=== PATIENT | female | born 1975 | race Caucasian/White ===

== ENCOUNTER 2017-08-03 18:45 | Emergency (ER) | payer BC, OTHER ==
[2017-08-03] MEDS ORDERED: Acetaminophen/HYDROcodone 325-10 MG Tab PO ONE (18:46)
--- NOTE | 2017-08-03 19:45 | EDM.PDOC ---
ED HPI GENERAL MEDICAL PROBLEM - General Chief Complaint: Lower Extremity Injury/Pain Stated Complaint: WANTS TO HAVE FOOT CHECKED [id number] Time Seen by Provider: 08/03/17 19:41 Source of Information: Reports: Patient History Limitations: Reports: No Limitations - History of Present Illness INITIAL COMMENTS - FREE TEXT/NARRATIVE: left steeping press tender bottom only on weight bearing. denies injury. 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: Endocrine/Metabolic History: Reports: Hypothyroidism, Other (See Below) Other Endocrine/Metabolic History: idiopathic hypersomnia - Past Surgical History Female Surgical History: Reports: Tubal Ligation, Other (See Below) Other Female Surgeries/Procedures: hysterectomy Social & Family History - Tobacco Use Smoking Status *Q: Former Smoker Used Tobacco, but Quit: Yes Month Tobacco Last Used: 04/2017 - Caffeine Use Caffeine Use: Reports: Soda, Tea - Recreational Drug Use Recreational Drug Use: No Review of Systems - Review of Systems Review Of Systems: ROS reveals no pertinent complaints other than HPI. ED EXAM, GENERAL - Physical Exam Exam: See Below Exam Limited By: No Limitations General Appearance: Alert, WD/WN, Anxious, Mild Distress, Other (upset) Ears: Hearing Grossly Normal Throat/Mouth: Normal Voice, No Airway Compromise Head: Atraumatic Neck: Non-Tender, Full Range of Motion Respiratory/Chest: No Respiratory Distress Cardiovascular: Regular Rate, Rhythm GI/Abdominal: Soft, Non-Tender Extremities: Other (plantar tender on weight bearing, no gross D/D, NVwnl, gait limited to pain.) Neurological: Alert, Oriented, Normal Cognition, No Motor/Sensory Deficits Psychiatric: Anxious Skin Exam: Warm, Dry, Normal Color Lymphatic: No Adenopathy Course - Vital Signs Last Recorded V/S: Last Vital Signs Temp 37.7 C 08/03/17 19:00 Pulse 88 08/03/17 19:00 Resp 16 08/03/17 19:00 BP 143/91 H 08/03/17 19:00 Pulse Ox 99 08/03/17 19:00 - Re-Assessments/Exams Free Text/Narrative Re-Assessment/Exam: 08/03/17 20:43 results discussed with pt. Departure - Departure Time of Disposition: 20:43 Disposition: Home, Self-Care 01 Condition: Good Clinical Impression: Contusion of foot, left Qualifiers: Encounter type: initial encounter Qualified Code(s): S90.32XA - Contusion of left foot, initial encounter - Discharge Information Instructions: Foot Contusion, [id number] Forms: ED Department Discharge Additional Instructions: 1) elevate leg as much as possible 2) see Rajesh for possible MRI SCAN or ORTHOPEDIC REFERRAL 3) recheck if there is any change or concern rx igor; wenceslao x1
[2017-08-03] MEDS ORDERED: Acetaminophen/HYDROcodone 325-10 MG Tab ONE (20:50)
== END 2017-08-03 21:44 | disposition home or self-care (01) ==
LOC: DL.ED 18:45
DX: S90.32XA Contusion of left foot, initial encounter (principal); Z79.899 Other long term (current) drug therapy; Z87.891 Personal history of nicotine dependence; X58.XXXA Exposure to other specified factors, initial encounter
CPT/HCPCS: 73620-LT; 99283; A9270-GY

== ENCOUNTER 2018-12-10 08:02 | Day surgery (SDC) | payer BC, OTHER ==
[~2018-12-10 08:02] MED LIST: Sodium Chloride 0.9% 10 ML Syringe FLUSH PRN; ceFAZolin 1 GM in Premix Bag 1 BAG IV ONE
[2018-12-10] MEDS ORDERED: Bupivacaine 0.5% 30 ML SDV INJECT ONE ×5 (08:03→11:37)
[2018-12-10] MEDS ORDERED: Dexamethasone 4 MG/ML SDV IV ONE (08:03)
[2018-12-10] MEDS ORDERED: Propofol 200 MG/20 ML SDV IV ONE (08:03)
[2018-12-10] MEDS ORDERED: Ketorolac 30 MG/ML SDV IVPUSH ONE (08:03)
[2018-12-10] MEDS ORDERED: Ondansetron 4 MG/2 ML SDV IV ONE (08:03)
[2018-12-10] MEDS ORDERED: fentaNYL 100 MCG/2 ML SDV IV ONE (08:03)
[2018-12-10] MEDS ORDERED: Lidocaine 1% 30 ML SDV INJECT ONE ×5 (08:03→11:37)
[2018-12-10] MEDS ORDERED: Midazolam 1 MG/ML 2 ML SDV IV ONE (08:03)
[2018-12-10] MEDS ORDERED: Lactated Ringers 1,000 ML IV SCH (09:00)
[2018-12-10] MEDS ORDERED: Bupivacaine 0.5% 30 ML SDV ONE (10:08)
[2018-12-10] MEDS ORDERED: Lidocaine 1% 30 ML SDV ONE (10:08)
[2018-12-10] MEDS ORDERED: Acetaminophen/oxyCODONE 325-5 MG Tab PO PRN (11:47)
--- NOTE | 2018-12-10 11:50 | PCM.OPNOTE ---
- General Post-Op/Procedure Note Date of Surgery/Procedure: 12/10/18 Operative Procedure(s): Right foot 1st MTPJ cheilectomy Pre Op Diagnosis: Right foot 1st MTPJ arthritis/hallux limitus Post-Op Diagnosis: keya Anesthesia Technique: Local, MAC Primary Surgeon: Maria Luisa Byrnes Anesthesia Provider: Rosalio Coronado EBL in mLs: 5 Complications: none Condition: Good Free Text/Narrative:: Pt tolerated procedure well and was transported to recovery with vascular status intact to right foot. Well padded compression dressing applied.
--- NOTE | 2018-12-13 20:29 | OR ---
DATE: 12/10/2018 PREOPERATIVE DIAGNOSIS: Right 1st metatarsophalangeal joint bone spur/hallux limitus. POSTOPERATIVE DIAGNOSIS: Right 1st metatarsophalangeal joint bone spur/hallux limitus. PROCEDURE PERFORMED: Right foot 1st metatarsophalangeal joint cheilectomy. ANESTHESIA: Local MAC with preoperative local block of 10 mL 1:1 mixture of 1% lidocaine plain and 0.5% Marcaine plain. TOURNIQUET TIME: 49 minutes, pneumatic ankle tourniquet. ESTIMATED BLOOD LOSS: Minimal. SPECIMEN: None. COMPLICATIONS: None. INDICATIONS: Elvia is a 43-year-old female who presents with right great toe pain. She states in 2014, she dropped a dresser on her great toe when she was wearing foot flaps. She did have pain and swelling to that toe. Now, the toe is still painful, worse when she tries to wear high-heeled shoes, and it feels like it gets jammed. There is no bump on the top of that joint that is painful. She has tried multiple different shoes and activity modifications with no relief. X-rays of the right foot reveal no signs of fracture, spurring on the dorsal 1st MTPJ, small osteophyte, lateral joint. The patient voiced good understanding of proposed procedure and possible complications and elects to have surgery at this time. DESCRIPTION OF PROCEDURE: The patient was taken to the operating room, lying in supine position. After adequate anesthesia induction as described above, the right foot was prepped and draped in usual sterile fashion. A pneumatic ankle tourniquet was inflated to 225 mmHg. Attention was then directed to the dorsal aspect of the 1st metatarsophalangeal joint on the right foot. Sharp and blunt dissection was performed down to the level of the joint capsule with care to retract all neurovascular structures. A T-capsulotomy was made and the joint was exposed. The capsule was sharply dissected free from its attachments to the distal 1st metatarsal and base of the proximal phalanx. A moderate osteophyte of the dorsal aspect of the 1st metatarsal was noted at this time as well as a large loose body that looked like it had broken off the lateral aspect of the head of the 1st metatarsal, there was a cartilaginous defect underneath the loose body in the same shape. This was removed. There were also noted to be 3 smaller loose bodies at the dorsal lateral aspect of the joint, which were all removed. The remainder of the joint surface appeared healthy in appearance without any other defects. A sagittal saw was used to resect the bone from the medial, dorsal, and lateral aspects of the 1st metatarsal head and dorsal base of the proximal phalanx so that all spurring was removed. The 1st MTPJ was noted to have increased dorsiflexion after this with good fluid range of motion. All rough bony edges were smoothed down with rongeur and bone rasp. The defect at the lateral aspect was drilled with a 0.062 inch K-wire. The area was then irrigated with copious amounts of sterile saline. Capsular closure was completed with 3-0 Vicryl and skin closure was completed with 4-0 nylon. The area was dressed with Xeroform to incision site, fluffs, Webril, and a well- padded compression dressing. The patient tolerated the procedure and anesthesia well and left the operating room for recovery with vital signs stable in good condition with vascular status intact to the right foot as noted by immediate hyperemia upon deflation of the ankle tourniquet. The patient was then discharged home when she met hospital discharge requirements. [facility] /[id number]
== END 2018-12-10 13:00 | disposition home or self-care (01) ==
LOC: DL.SDS 08:02
PROVIDERS: ATTEND Podiatrist
DX: M20.5X1 Other deformities of toe(s) (acquired), right foot (principal); M25.774 Osteophyte, right foot; M19.071 Primary osteoarthritis, right ankle and foot; M79.7 Fibromyalgia; E03.9 Hypothyroidism, unspecified; F41.9 Anxiety disorder, unspecified; Z87.891 Personal history of nicotine dependence; Z79.899 Other long term (current) drug therapy
CPT/HCPCS: 28291; J0690; J1100; J1885; J2001; J2250; J2405; J2704; J3010; J3490; J7120